=== PATIENT | male | born 2000 | race Caucasian/White ===

== ENCOUNTER 2020-02-08 16:14 | Emergency (ER) | payer OTHER, SELFPAY ==
[2020-02-08 16:26] VITALS: BP 147/85; PULSE 100; RESP 14; TEMP 36.8; O2SAT 99
--- NOTE | 2020-02-08 16:40 | ED.WOUNDLAC ---
HPI - Wound/Laceration General Chief Complaint: Wound/Laceration Stated Complaint: cut on right index finger Time Seen by Provider: 02/08/20 16:34 Source: patient and RN notes reviewed Mode of arrival: ambulatory Limitations: no limitations History of Present Illness HPI narrative: Patient presents today with a laceration to his right second finger pad. It was sustained approximately 30 minutes prior to arrival. Reports he became angry at work and punched a wooden table with his knuckles, but does not believe that this is what cut his finger. He noticed that his finger was bleeding after he got into his car, so possibly cut his hand on his door handle or car door. He is unsure of the date of his last tetanus vaccine. Denies any current pain. Denies numbness or tingling in the finger. Denies any pain in the rest of the hand due to punching the table. Related Data Home Medications Medication Instructions Recorded Confirmed No Home Medications 02/08/20 02/08/20 Allergies Allergy/AdvReac Type Severity Reaction Status Date / Time No Known Allergies Allergy Verified 02/08/20 16:35 Review of Systems Review of Systems: Narrative: CONSTITUTIONAL: Denies body aches, fever, chills, or sweats. EYES: Denies visual changes, redness, or discharge. ENT: Denies rhinorrhea, congestion, sore throat, or otalgia. CARDIOVASCULAR: Denies chest pain, palpitations, or edema. RESPIRATORY: Denies cough or dyspnea. GASTROINTESTINAL: Denies abdominal pain, nausea, vomiting, or diarrhea. GENITOURINARY: Denies dysuria or hematuria. SKIN: Denies rash, itching. +Wound to right second finger MUSCULOSKELETAL: Denies back pain, joint pain, or myalgia. NEUROLOGIC: Denies headache, numbness, tingling, or weakness. PSYCH: Denies depression or anxiety. PMFSH Comments At time of signature, I have reviewed and agree with nursing past medical, surgical, social and family history unless otherwise noted. Please see nursing chart for further information. There is no relevant family history pertinent to the presenting complaint Exam Narrative: Exam Narrative: GENERAL: Well-appearing, well-nourished, and in no acute distress. HEAD: Normocephalic, atraumatic. EYES: EOMI. No redness or drainage. Conjunctivae normal. ENT: Mucous membranes pink and moist. NECK: Normal AROM. CHEST: No respiratory distress. EXTREMITIES: Normal range of motion. No edema. SKIN: Warm, dry, no rash. Capillary refill normal. Normal skin turgor. 1.5cm full thickness flap laceration to pad of right 2nd finger. Distal sensation intact. Capillary refill normal. Full AROM against resistance. NEURO: No focal deficits. Alert and oriented x3. Gait steady. PSYCH: Normal affect. No signs of depression or anxiety. Course Vital Signs Vital signs: Vital Signs Temperature 98.2 F 02/08/20 16:26 Pulse Rate 100 02/08/20 16:26 Respiratory Rate 14 02/08/20 16:26 Blood Pressure 147/85 H 02/08/20 16:26 Pulse Oximetry 99 02/08/20 16:26 Temperature 98.2 F 02/08/20 16:26 Pulse Rate 100 02/08/20 16:26 Respiratory Rate 14 02/08/20 16:26 Blood Pressure 147/85 H 02/08/20 16:26 Pulse Oximetry 99 02/08/20 16:26 Reviewed. Pt has been instructed to follow up with his PCP regarding his elevated blood pressure today. Procedures Laceration Laceration 1: Date: 02/08/20 Time: 16:50 Site: upper extremity Side (If applicable): right (Second finger) Size (cm): 1.5 Description: flap Depth: simple, single layer Local Anesthetic: lidocaine 1% (Digital block ) Amount of anesthesia used (mL): 5 Pre-repair: wound explored and irrigated ====== Skin Level ====== Skin layer closed with: nylon Size (cm): 5-0 Number of sutures: 5 Technique: simple, interrupted ====== Subcutaneous Layer ====== ====== Muscle Layer ====== ====== Tendon Layer ====== Dress
[2020-02-08] MEDS: TETANUS,DIPHTHERIA,AC PERTUSSIS ADULT 0.5 ML (ADACEL) IM (16:55)
== END 2020-02-08 17:15 | disposition home or self-care (01) ==
PROVIDERS: Emergency Provider Nurse Practitioner
DX: S61.210A Laceration without foreign body of right index finger without damage to nail, initial encounter (principal); W26.8XXA Contact with other sharp object(s), not elsewhere classified, initial encounter; Z23 Encounter for immunization
CPT/HCPCS: 12001; 90471; 90715; 99212; G0463

== ENCOUNTER 2020-02-17 11:30 | Emergency (ER) | payer OTHER, SELFPAY ==
--- NOTE | 2020-02-17 11:36 | ED.GENADULT ---
HPI - General Adult General Chief complaint: Wound/Laceration Stated complaint: remove stitches Time Seen by Provider: 02/17/20 11:44 Source: patient and RN notes reviewed Mode of arrival: ambulatory Limitations: no limitations History of Present Illness HPI narrative: 3-year-old male presents with concern for suture removal. Reports he had 5 sutures placed the second digit of the right hand on February 07. Denies any complications with healing. Denies pain, drainage, redness, swelling. complaint: Suture removal Related Data Home Medications Medication Instructions Recorded Confirmed No Home Medications 02/08/20 02/08/20 Allergies Allergy/AdvReac Type Severity Reaction Status Date / Time No Known Allergies Allergy Verified 02/08/20 16:35 Review of Systems Review of Systems: Narrative: CONSTITUTIONAL: Denies malaise, chills, sweats, or fever. RESPIRATORY: Denies cough or dyspnea. SKIN: Reports healing laceration to the second digit of the right hand with intact sutures MUSCULOSKELETAL: Denies decreased range of motion, sensation to digit NEUROLOGIC: Denies numbness, weakness All systems reviewed & are unremarkable except as noted in HPI and below PMFSH Comments At time of signature, agree with nursing past medical, surgical, social and family history. There is no relevant family history pertinent to the presenting complaint Exam Narrative: Exam Narrative: GENERAL: Well-appearing, well-nourished, and in no acute distress. HEAD: Normocephalic EYES: PERRLA, conjunctivae clear ENT: Mucous membranes moist. NECK: Supple. CHEST: No respiratory distress. Speaks in full sentences. HEART: Regular rate and rhythm. Capillary refill less than 3 seconds SKIN: Warm, dry. Well approximated, healing laceration noted to the palmar aspect of the tip of the second digit of the right hand, 5 intact sutures. NEURO: Alert and oriented x3. PSYCH: Normal mood and affect Course Course Emergency Course: Patient is aware of diagnosis, understands and agrees to treatment plan. Anticipatory guidance given. Patient agrees to follow-up as directed and is aware of reasons to seek care at the emergency department. Portions of this record may have been created with voice recognition software Vital Signs Vital signs: Vital Signs Temperature 99.5 F 02/17/20 11:40 Pulse Rate 87 02/17/20 11:40 Respiratory Rate 16 02/17/20 11:40 Blood Pressure 138/74 02/17/20 11:40 Pulse Oximetry 100 02/17/20 11:40 Temperature 99.5 F 02/17/20 11:40 Pulse Rate 87 02/17/20 11:40 Respiratory Rate 16 02/17/20 11:40 Blood Pressure 138/74 02/17/20 11:40 Pulse Oximetry 100 02/17/20 11:40 Reviewed. Medical Decision Making MDM Narrative Medical decision making narrative: Verbal consent was obtained. Wound well approximated, no erythema, induration, or discharge noted. 5 completely removed in a sterile fashion. Patient tolerated procedure well, no complications. Patient advised to look for and return for any signs of infection such as redness, swelling, discharge, or worsening pain. Vital Signs Vital Signs: Vital Signs Temperature 99.5 F 02/17/20 11:40 Pulse Rate 87 02/17/20 11:40 Respiratory Rate 16 02/17/20 11:40 Blood Pressure 138/74 02/17/20 11:40 Pulse Oximetry 100 02/17/20 11:40 Temperature 99.5 F 02/17/20 11:40 Pulse Rate 87 02/17/20 11:40 Respiratory Rate 16 02/17/20 11:40 Blood Pressure 138/74 02/17/20 11:40 Pulse Oximetry 100 02/17/20 11:40 Critical Care Time Critical Care Time Critical Care Time: No Discharge Plan Discharge Clinical Impression: Encounter for removal of sutures Patient Disposition: Home, Self-Care Condition: Stable Instructions: Stitches Removal (ED) Additional Instructions: AFTER the stiches are removed: Clean your wound as directed. Carefully wash your wound with soap and water. Pat the area dry with a clean towel. Protect your woun
[2020-02-17 11:40] VITALS: BP 138/74; PULSE 87; RESP 16; TEMP 37.5; O2SAT 100
== END 2020-02-17 11:53 | disposition home or self-care (01) ==
PROVIDERS: Emergency Provider Nurse Practitioner
DX: S61.411D Laceration without foreign body of right hand, subsequent encounter (principal); X58.XXXD Exposure to other specified factors, subsequent encounter
CPT/HCPCS: 99211; G0463